=== PATIENT | male | born 1990 | race Caucasian/White ===

== ENCOUNTER 2017-04-23 02:26 | Emergency (ER) | payer BC ==
[~2017-04-23] VITALS: Ht 170.2 cm; Wt 64.0 kg
[2017-04-23 02:27] VITALS: TEMP 36.9; Ht 170.2 cm; Wt 64.0 kg
--- NOTE | 2017-04-23 03:04 | EMERGENCY ROOM VISIT NOTE ---
History Report prepared by Blanquita: Dion Henriquez Under the Supervision of: Dr. Lois Trammell D.O. First contact with patient: 02:35 Chief Complaint: ALCOHOL OVERDOSE Stated Complaint: ALCOHOL OVERDOSE Nursing Triage Summary: Patient presents [facility] for evaluation of alcohol overdose. Patient was found behind the [employer] by PD. Patient ambulatory to ED. A/o x4. Denies any drug use. Denies any complaints. History of Present Illness The patient is a 26 year old male who presents to the Emergency Room for evaluation of constant alcohol intoxication beginning shortly prior to arrival. He believes that his friends may have called EMS on him, and then left. He believes that his friends likely did this as a joke. The patient estimates that he had 10-15 drinks tonight. He states "I feel slightly buzzed, but not drunk". He denies any trauma, falls, or passing out. The patient is unsure if his friends called EMS, or if EMS was already there by coincidence. He states that he was drinking at a bar tonight. He denies any nausea, or vomiting. The patient denies using any additional recreational drugs. Source of History: patient Onset: Shortly prior to arrival Quality: other (alcohol intoxication) Timing: constant Associated Symptoms: No nausea, No vomiting Review of Systems See HPI for pertinent positives & negatives. A total of 10 systems reviewed and were otherwise negative. Past Medical & Surgical Medical Problems: (1) No Known Active Medical Problems Family History No pertinent family history stated. Social History Smoking Status: Never Smoker Alcohol Use: occasionally Drug Use: none Occupation Status: student Current/Historical Medications No Active Prescriptions or Reported Meds Allergies Coded Allergies: No Known Allergies (Unverified , 04/23/17) Physical Exam Vital Signs Date Time Temp Pulse Resp B/P (MAP) Pulse Ox O2 Delivery O2 Flow Rate FiO2 04/23/17 03:09 96 18 149/79 99 04/23/17 02:27 36.9 111 18 152/101 99 Room Air Physical Exam GENERAL: alert, well appearing, well nourished, no distress, non-toxic EYE EXAM: normal conjunctiva, PERRL and EOM's grossly intact OROPHARYNX: no exudate, no erythema, lips, buccal mucosa, and tongue normal and mucous membranes are moist NECK: supple, no nuchal rigidity, no adenopathy, non-tender LUNGS: Clear to auscultation. Normal chest wall mechanics HEART: no murmurs, S1 normal and S2 normal ABDOMEN: abdomen soft, non-tender, normo-active bowel sounds, no masses, no rebound or guarding. BACK: Back is symmetrical on inspection and there is no deformity, no midline tenderness, no CVA tenderness. SKIN: no rashes and no bruising UPPER EXTREMITIES: upper extremities are grossly normal. LOWER EXTREMITIES: No pitting edema. NEURO EXAM: Normal sensorium, cranial nerves II-XII grossly intact, normal speech, no gross weakness of arms, no gross weakness of legs. Medical Decision & Procedures ED Course 0236: The patient was evaluated in room B12A. A complete history and physical exam was performed. 0305: Upon reevaluation, the patient is feeling better. I discussed the findings and the treatment plan with the patient. He verbalizes agreement and understanding. He was discharged home. Patient is not driving, called for [employer]. Medical Decision Differential diagnosis: Etiologies such as alcohol intoxication, toxicologic, infection, hypoglycemia, electrolyte abnormalities, cardiac sources, intracerebral event, neurologic, as well as others were entertained. Patient clinically sober here, ambulating with a steady gait, no slurred speech , normal neuro exam. Patient requesting to leave, no evidence of trauma. Patient denying any other symptoms, vital signs stable. Didn't feel patient warranted additional labs or imaging at this time. Discussed symptoms to watch and return for, he verbalized understanding and was agreeable with plan. Impression Primary Impression: Alcoholic intoxication Scribe Attestation The scribe's documentation has been prepared under my direction and personally reviewed by me in its entirety. I confirm that the note above accurately reflects all work, treatment, procedures, and medical decision making performed by me. Departure Information Dispostion Home / Self-Care Prescriptions No Active Prescriptions or Reported Meds Patient Instructions My [facility] [employer] Additional Instructions Please drink responsibly in a safe location. Do not drink and drive. Please drink plenty of fluids to stay well-hydrated. If you have any new or concerning symptoms, please return the emergency room. Problem Qualifiers Primary Impression: Alcoholic intoxication Complication of substance-induced condition: uncomplicated Qualified Codes: F10.920 - Alcohol use, unspecified with intoxication, uncomplicated
[2017-04-23 03:09] VITALS: BP 149/79; PULSE 96; O2SAT 99
== END 2017-04-23 03:10 | disposition home or self-care (01) ==
LOC: C.EDB 02:29
DX: F10.920 Alcohol use, unspecified with intoxication, uncomplicated (principal)